=== PATIENT | female | born 1980 | race Two or more races ===

== ENCOUNTER 2023-04-10 16:15 | Observation (INO) | payer MEDICAID ==
[~2023-04-10 16:15] MED LIST: NIFE1TAB31 PO
[2023-04-10] MEDS ORDERED: METF-370 PO (17:33)
[2023-04-10] MEDS ORDERED: DOCO200C4 PO (17:34)
== END 2023-04-10 17:43 | disposition home or self-care (01) ==
LOC: UNDOADMOB 16:15 → LDRP 16:15 → UNDODISOB 17:43
PROVIDERS: ADMIT Obstetrics & Gynecology; ATTEND Obstetrics & Gynecology
DX: O24.415 Gestational diabetes mellitus in pregnancy, controlled by oral hypoglycemic drugs (principal); Z79.84 Long term (current) use of oral hypoglycemic drugs; Z3A.36 36 weeks gestation of pregnancy; Z98.891 History of uterine scar from previous surgery
CPT/HCPCS: 59025; 76818; 81002; 94760; G0378

== ENCOUNTER 2023-04-13 16:00 | Observation (INO) | payer MEDICAID ==
[~2023-04-13 16:00] MED LIST changes: +DOCO200C4 PO; +METF-370 PO
== END 2023-04-13 17:53 | disposition home or self-care (01) ==
LOC: UNDOADMOB 16:00 → LDRP 16:00 → UNDODISOB 17:53
PROVIDERS: ADMIT Obstetrics & Gynecology; ATTEND Obstetrics & Gynecology
DX: O24.415 Gestational diabetes mellitus in pregnancy, controlled by oral hypoglycemic drugs (principal); Z3A.36 36 weeks gestation of pregnancy; Z79.84 Long term (current) use of oral hypoglycemic drugs; Z98.891 History of uterine scar from previous surgery
CPT/HCPCS: 59025; 76818; 81002; 82948; 82962; 94760; G0378

== ENCOUNTER 2023-04-17 16:23 | Observation (INO) | payer MEDICAID | END 2023-04-17 17:36 | disposition home or self-care (01) | LOC: LDRP 16:23 | PROVIDERS: ADMIT Obstetrics & Gynecology; ATTEND Obstetrics & Gynecology | DX: O24.419 Gestational diabetes mellitus in pregnancy, unspecified control (principal); Z3A.37 37 weeks gestation of pregnancy | CPT/HCPCS: 59025; 76818; 81002; 82948; 82962; 94760; G0378 ==

== ENCOUNTER 2023-04-24 10:51 | Observation (INO) | payer MEDICAID ==
[~2023-04-24 10:51] MED LIST changes: -NIFE1TAB31 PO
== END 2023-04-24 13:37 | disposition home or self-care (01) ==
LOC: LDRP 11:32 → UNDOADMOB 11:32 → LDRP 11:48 → UNDODISOB 13:37
PROVIDERS: ADMIT Obstetrics & Gynecology; ATTEND Obstetrics & Gynecology
DX: O24.419 Gestational diabetes mellitus in pregnancy, unspecified control (principal); Z3A.38 38 weeks gestation of pregnancy; Z98.51 Tubal ligation status
CPT/HCPCS: 59025; 76818; 81002; 82948; 82962; G0378

== ENCOUNTER 2023-04-27 08:55 | Observation (INO) | payer MEDICAID | END 2023-04-27 15:22 | disposition home or self-care (01) | LOC: LDRP 12:33 → UNDOADMOB 12:33 → LDRP 13:07 | PROVIDERS: ADMIT Obstetrics & Gynecology; ATTEND Obstetrics & Gynecology | DX: O24.419 Gestational diabetes mellitus in pregnancy, unspecified control (principal); Z3A.38 38 weeks gestation of pregnancy | CPT/HCPCS: 59025; 76818; 81002; 82948; 82962; G0378 ==

== ENCOUNTER 2023-04-29 05:07 | Inpatient (IN) | payer MEDICAID ==
[2023-04-28 13:55] LABS: Basophils # (auto) 0 10 ^3/uL (0-0.2); Basophils % (auto) 0.2 % (0.0-2.0); Eosinophils # (auto) 0.2 10 ^3/uL (0-0.8); Hematocrit 39.4 % (36.0-46.0); Hemoglobin 12.9 g/dL (12.2-16.2); Lymphocytes # (auto) 1.5 10 ^3/uL (0.4-5.4); Lymphocytes % (auto) 15.8 % (10.0-50.0); Mean Corpuscular Hemoglobin 28.5 pg (28.0-32.0); Mean Corpuscular Hgb Conc. 32.8 g/dL (32.0-36.0); Mean Corpuscular Volume 87.1 fL (80.0-100.0); Monocytes # (auto) 0.8 10 ^3/uL (0-1.3); Monocytes % (auto) 8.9 % (0.0-12.0); Neutrophils % (auto) 73.1 % (37.0-80.0); Nucleated Red Blood Cells % 0.2 %; Red Blood Cells 4.53 10^6/uL (4.0-5.20); White Blood Cell 9.6 10^3/uL (4.4-10.8)
[2023-04-28 14:10] LABS: INR 0.93 (0.9-1.15); Partial Thromboplastin Time 27.3 SEC (24.5-34.5); Prothrombin Time 9.8 sec (9.3-11.8)
[2023-04-28 14:17] LABS: Albumin 2.9 g/dL (3.4-5.0); Calcium 9.6 mg/dL (8.5-10.1); Potassium 3.8 mmol/L (3.5-5.1)
[2023-04-28 14:21] LABS: BUN/Creatinine Ratio 12.5 (10.0-20.0); Bilirubin, Total 0.3 mg/dL (0.2-1.0)
[2023-04-28 14:23] LABS: Urine Bacteria MANY /hpf (None Seen); Urine Blood Negative /uL (Negative); Urine Clarity HAZY (Clear); Urine Color Colorless (Yellow); Urine Protein, UAD Negative (Negative); Urine Specific Gravity 1.003 (1.001-1.035); Urine Urobilinogen Normal (Negative); Urine WBC 6 /hpf (0 - 5); Urine pH 6.5 (5.0-8.0)
[2023-04-28 14:30] LABS: Alcohol, Urine < 3.0 mg/dL (0-10); Amphetamine Screen, Urine NEGATIVE (NEGATIVE); Barbiturate Scree,Urine NEGATIVE (NEGATIVE); Benzodiazephine Screen, Urine NEGATIVE (NEGATIVE); Cannabinoid Screen, Urine NEGATIVE (NEGATIVE); Cocaine Screen, Urine NEGATIVE (NEGATIVE); Phencyclidine Screen, Urine NEGATIVE (NEGATIVE)
[2023-04-28 14:38] LABS: Opiate Scree,Urine NEGATIVE (NEGATIVE)
[~2023-04-29] VITALS: Ht 149.9 cm; Wt 68.9 kg
[2023-04-29] VITALS (24 sets, daily range): BP systolic 100–140; BP diastolic 43–92; PULSE 58–83; RESP 11–18; TEMP 97.7–98; O2SAT 93–97
[2023-04-29] MEDS ORDERED: LACTATED RINGER'S 1,000 ML IV ONE (05:30)
[2023-04-29] MEDS ORDERED: ceFAZolin 1GM/50ML 50 ML IV ONE (05:30)
[2023-04-29] MEDS ORDERED: MORPHINE SULF PF 5 MG/10 ML VIAL ONE (07:05)
[2023-04-29] MEDS ORDERED: fentaNYL CITRATE 100 MCG/2 ML VL ONE (07:05)
[2023-04-29] MEDS ORDERED: oxyTOCIN 10 UNIT/ML 10ML VIAL ONE (07:06)
[2023-04-29] MEDS ORDERED: ONDANSETRON HCL 4 MG/2 ML VIAL ONE (07:06)
[2023-04-29] MEDS ORDERED: DexAMETHasone SOD PHOS 10MG/1ML VIAL INJ ONE (07:06)
[2023-04-29] MEDS: LACTATED RINGER'S 1,000 ML IV SCH ×3 (07:12→21:30)
[2023-04-29] MEDS ORDERED: ceFAZolin 1GM VL ONE (07:27)
[2023-04-29] MEDS ORDERED: IBUP-1456 PO (07:35)
[2023-04-29] MEDS ORDERED: PERCOT PO ×2 (07:35→07:43)
[2023-04-29] MEDS ORDERED: DOCU-94 PO (07:35)
[2023-04-29] MEDS ORDERED: PHENYLEPHRINE HCL 10 MG/ML VL ONE (07:55)
[2023-04-29] MEDS ORDERED: SODIUM CHLORIDE LOCK 10 ML ONE (07:55)
[2023-04-29 08:06] LABS: RPR Non Reactive (Non Reactive)
[2023-04-29] MEDS ORDERED: diphenhdrAMINE HCL 50 MG/1 ML VL IV PRN (09:00)
[2023-04-29] MEDS ORDERED: NALOXONE HCL 0.4 MG/ML VIAL IV PRN (09:00)
[2023-04-29] MEDS ORDERED: NALBUPHINE HCL 10 MG/1ml INJECTION IV ONE (09:00)
[2023-04-29] MEDS ORDERED: ONDANSETRON HCL 4 MG/2 ML VIAL IV PRN (09:00)
[2023-04-29] MEDS ORDERED: HYDROmorphone HCL 2 MG/ML VL/or syr IV PRN (09:00)
[2023-04-29] MEDS ORDERED: ACETAMINOPHEN IV 1000 MG/100ML (10MG/ML) IV PRN ×2 (10:15→12:00)
[2023-04-29] MEDS: ceFAZolin 1GM/50ML 50 ML IV SCH ×2 (15:16→23:28)
[2023-04-29] MEDS: ACETAMINOPHEN IV 1000 MG/100ML (10MG/ML) IV PRN (20:40)
[2023-04-30] VITALS (8 sets, daily range): BP systolic 109–136; BP diastolic 63–81; PULSE 64–88; RESP 18; TEMP 97.8–98.5; O2SAT 94–98
[2023-04-30] MEDS: ACETAMINOPHEN IV 1000 MG/100ML (10MG/ML) IV PRN (04:33)
[2023-04-30] MEDS: LACTATED RINGER'S 1,000 ML IV SCH (05:30)
[2023-04-30 06:08] LABS: Basophils # (auto) 0.1 10 ^3/uL (0-0.2); Basophils % (auto) 0.4 % (0.0-2.0); Eosinophils # (auto) 0.1 10 ^3/uL (0-0.8); Eosinophils % (auto) 0.5 % (0.0-7.0); Hematocrit 32.6 % (36.0-46.0); Hemoglobin 10.8 g/dL (12.2-16.2); Lymphocytes # (auto) 1.6 10 ^3/uL (0.4-5.4); Lymphocytes % (auto) 11.5 % (10.0-50.0); Mean Corpuscular Hemoglobin 29.2 pg (28.0-32.0); Mean Corpuscular Hgb Conc. 33.1 g/dL (32.0-36.0); Mean Corpuscular Volume 88.3 fL (80.0-100.0); Monocytes # (auto) 1.3 10 ^3/uL (0-1.3); Monocytes % (auto) 8.8 % (0.0-12.0); Neutrophils # (auto) 11.3 10 ^3/uL (1.6-8.6); Neutrophils % (auto) 78.8 % (37.0-80.0); Red Blood Cells 3.69 10^6/uL (4.0-5.20); White Blood Cell 14.4 10^3/uL (4.4-10.8)
[2023-04-30] MEDS ORDERED: BISACODYL 10 MG RECT SUPP PR PRN (06:45)
[2023-04-30] MEDS ORDERED: IBUPROFEN 800 MG TAB PO PRN (06:45)
[2023-04-30] MEDS ORDERED: HYDROcodone-ACET 5/325MG TAB PO PRN (06:45)
[2023-04-30] MEDS: ceFAZolin 1GM/50ML 50 ML IV SCH (08:01)
[2023-04-30] MEDS ORDERED: DOCUSATE CALCIUM 240 MG CAP PO SCH (10:00)
[2023-04-30] MEDS: SIMETHICONE 80 MG CHEWABLE TABLET PO SCH ×3 (11:19→23:03)
[2023-04-30] MEDS: HYDROcodone-ACET 5/325MG TAB PO PRN ×2 (11:20→19:35)
[2023-04-30] MEDS: FERROUS SULFATE 325mg EC TAB PO SCH ×2 (11:20→23:04)
[2023-04-30] MEDS: DOCUSATE SOD 100 MG CAP PO SCH ×2 (11:20→23:04)
[2023-05-01 03:15] VITALS: BP 129/74; PULSE 80; RESP 18; TEMP 99
[2023-05-01] MEDS: SIMETHICONE 80 MG CHEWABLE TABLET PO SCH ×2 (06:00→11:30)
[2023-05-01 06:50] VITALS: BP 117/66; PULSE 77; RESP 19; TEMP 98.6; O2SAT 98
[2023-05-01] MEDS: FERROUS SULFATE 325mg EC TAB PO SCH (11:17)
[2023-05-01] MEDS: DOCUSATE SOD 100 MG CAP PO SCH (11:17)
[2023-05-01 11:30] VITALS: BP 111/67; PULSE 75; RESP 16; TEMP 98.1; O2SAT 100
[2023-05-01] MEDS: HYDROcodone-ACET 5/325MG TAB PO PRN (13:13)
[2023-05-01 14:31] VITALS: BP 114/66; PULSE 72; RESP 16; TEMP 98.6; O2SAT 100
[2023-05-01 21:06] LABS: Treponema pallidum Ab (FTA-Ab) Non Reactive (Non Reactive)
== END 2023-05-01 17:40 | disposition home or self-care (01) | DRG 539 ==
LOC: LDRP 05:07
PROVIDERS: ADMIT Obstetrics & Gynecology; ATTEND Obstetrics & Gynecology
PROC: 0UL70CZ Occlusion of Bilateral Fallopian Tubes with Extraluminal Device, Open Approach (ICD-10-PCS; 2023-04-29)
PROC: 10D00Z1 Extraction of Products of Conception, Low, Open Approach (ICD-10-PCS; principal; 2023-04-29 07:25)
DX: O34.211 Maternal care for low transverse scar from previous cesarean delivery (principal); R71.0 Precipitous drop in hematocrit; O24.429 Gestational diabetes mellitus in childbirth, unspecified control; Z30.2 Encounter for sterilization; Z3A.38 38 weeks gestation of pregnancy; Z37.0 Single live birth
CPT/HCPCS: 36415; 59025; 80053; 80307; 81001; 81002; 85025; 85610; 85730; 86592; 86850; 86870; 86900; 86901; 94760; 96360; 96365; 96366; G0378; J0131; J0690; J1100; J2405; J2590